=== PATIENT | male | born 2000 | race Caucasian/White ===

== ENCOUNTER 2025-03-19 19:51 | Inpatient (IN) | payer SELFPAY ==
[~2025-03-19] VITALS: Ht 162.6 cm; Wt 75.7 kg
[2025-03-19 19:57] VITALS: O2SAT 98
[2025-03-19 20:23] LABS: BASOPHILS % 0.2 % (0.0-2.0); EOSINOPHILS % 0.1 % (0.0-5.0); HEMATOCRIT. 47.7 % (42.0-52.0); HEMOGLOBIN. 16.0 g/dL (14.0-18.0); LYMPHOCYTES % 11.2 % (20.0-50.0); MEAN PLATELET VOLUME 9.4 fl (7.4-10.4); MONOCYTES % 4.5 % (2.0-8.0); NEUTROPHILS % 84.0 % (40.0-76.0); PLATELET 250 x1000/uL (130-400); RED BLOOD CELL COUNT 5.70 mill/uL (4.7-6.1); RED CELL DISTRIBUTION WIDTH 13.2 % (11.6-14.6)
[2025-03-19 20:39] LABS: CLARITY URINE TURBID (CLEAR); COLOR URINE YELLOW (YELLOW); GLUCOSE URINE NEGATIVE (NEGATIVE); KETONES URINE NEGATIVE (NEGATIVE); LEUKOCYTE ESTERASE URINE NEGATIVE (NEGATIVE); NITRITE URINE NEGATIVE (NEGATIVE); OCCULT BLOOD URINE NEGATIVE (NEGATIVE); PH URINE 7.0 (4.5-8.0); PROTEIN URINE NEGATIVE (NEGATIVE); SPECIFIC GRAVITY URINE 1.022 (1.005-1.030); UROBILINOGEN URINE 1.0 E.U./dL (0.2-1.0)
[2025-03-19 20:40] LABS: CREATININE 0.8 mg/dL (0.6-1.3); UREA NITROGEN BLOOD 8 mg/dL (9-23)
[2025-03-19 20:58] LABS: ASPARTATE AMINOTRANSFERASE 24 IU/L (<34); BILIRUBIN DIRECT 0.3 mg/dL (<=3.0); BILIRUBIN TOTAL 1.1 mg/dL (0.1-1.0); PROTEIN TOTAL 7.1 g/dL (6.0-8.3)
[2025-03-19 21:03] LABS: BACTERIA URINE 4+
[2025-03-19 21:04] LABS: AMORPHOUS SEDIMENT URINE 1+ /lpf; RBC URINE 0-2 /hpf (0-2); SQUAMOUS EPITHELIAL CELL URINE FEW /lpf (RARE/1+); WBC URINE 0-2 /hpf (0-2)
[2025-03-19] MEDS: SODIUM CHLORIDE 0.9% 1,000 ML IV ONE (21:04)
[2025-03-19] MEDS: KETOROLAC 30MG/ML VIAL IV NR (21:04)
[2025-03-19] MEDS: ONDANSETRON HCL 4MG/2ML INJ IV NR (21:04)
[2025-03-19] MEDS: FAMOTIDINE 20MG/2ML VIAL IV NR (21:04)
[2025-03-19] MEDS: SODIUM CHLORIDE 0.9% (SEPSIS BOLUS) IV ONE (22:22)
[2025-03-19] MEDS: MORPHINE SULFATE 4 MG/ML INJ (FOR IV/IM USE) IV NR (22:25)
[2025-03-19] MEDS: CEFOXITIN SODIUM 2 G in DEXT 5% WATER 100 ML IV NR (22:26)
[2025-03-19] MEDS: IOHEXOL-300 100 ML BOTTLE ONE (22:55)
[2025-03-20 00:30] VITALS: BP 110/64; PULSE 82; RESP 19; TEMP 36.6404
[2025-03-20] MEDS: SODIUM CHLORIDE 0.9% 1,000 ML IV SCH (01:09)
[2025-03-20] MEDS: METRONIDAZOLE 500 MG PREMIX 100 ML IV SCH (02:41)
[2025-03-20] MEDS: CEFTRIAXONE 2GM/50ML 50 ML IV SCH (05:00)
[2025-03-20 06:53] LABS: *AMPHETAMINES SCREEN URINE NEGATIVE (NEGATIVE)
[2025-03-20 06:55] LABS: *BARBITURATES SCREEN URINE NEGATIVE (NEGATIVE); *BENZODIAZEPINES SCREEN URINE NEGATIVE (NEGATIVE); *COCAINE SCREEN URINE NEGATIVE (NEGATIVE); CANNABINOID URINE SCREEN NEGATIVE (NEGATIVE); ECSTASY MDMA SCREEN URINE NEGATIVE (NEGATIVE); METHADONE URINE SCREEN NEGATIVE (NEGATIVE); OPIATES URINE SCREEN PRESUMPTIVE POSITIVE (NEGATIVE); PHENCYCLIDINE URINE SCREEN NEGATIVE (NEGATIVE)
[2025-03-20] MEDS ORDERED: BUPIVACAINE HCL/PF 0.5% (5MG/ML) 10ML ONE (07:07)
[2025-03-20] MEDS ORDERED: SKIN ADHESIVE 0.7 GM EA TOP ONE (07:07)
[2025-03-20] MEDS ORDERED: METOCLOPRAMIDE HCL 10MG/2ML VIAL ONE (07:41)
[2025-03-20] MEDS ORDERED: ONDANSETRON HCL 4MG/2ML INJ ONE (07:41)
[2025-03-20] MEDS ORDERED: ROCURONIUM BROMIDE 10MG/ML VIAL 5ML IV ONE (07:41)
[2025-03-20] MEDS ORDERED: FENTANYL CITRATE/PF 50MCG/ML 2ML VIAL ONE (07:42)
[2025-03-20] MEDS ORDERED: MIDAZOLAM HCL 2 MG/2 ML VIAL ONE (07:42)
[2025-03-20] MEDS ORDERED: PROPOFOL 200MG/20ML VIAL IV ONE ×2 (07:42→08:40)
[2025-03-20] MEDS ORDERED: ONDANSETRON HCL 4MG/2ML INJ IV PRN (08:15)
[2025-03-20] MEDS ORDERED: HYDROCODONE/ACETAMINOPHEN 5/325MG TABLET PO PRN (08:15)
[2025-03-20] MEDS ORDERED: MORPHINE SULFATE 4 MG/ML INJ (FOR IV/IM USE) IV PRN (08:15)
[2025-03-20] MEDS ORDERED: FAMOTIDINE 20MG/2ML VIAL IV ONE (08:28)
[2025-03-20] MEDS: PANTOPRAZOLE SODIUM 40 MG/VIAL IV SCH (08:41)
[2025-03-20] MEDS ORDERED: ACETAMINOPHEN 1000MG/100ML 100 ML IV PRN (09:30)
[2025-03-20] MEDS ORDERED: ACETAMINOPHEN 1,000MG/100ML PREMIX IV PRN (09:30)
[2025-03-20] MEDS ORDERED: HYDRALAZINE 20MG/ML VIAL IV PRN ×2 (09:30)
[2025-03-20] MEDS ORDERED: LABETALOL 5MG/ML 4ML INJ IV PRN (09:30)
[2025-03-20] MEDS ORDERED: HYDROMORPHONE HCL/PF 1MG/ML INJ IV PRN (09:30)
[2025-03-20] MEDS: ONDANSETRON HCL 4MG/2ML INJ IV PRN ×2 (09:41→09:45)
[2025-03-20] MEDS: FAMOTIDINE 20MG/2ML VIAL IV PRN (09:45)
[2025-03-20] MEDS: MEPERIDINE HCL/PF 25MG/ML CPJ IV PRN (09:47)
[2025-03-20] MEDS ORDERED: NALOXONE HCL 0.4MG/ML VIAL IV PRN (11:15)
[2025-03-20 12:00] VITALS: BP 134/80; PULSE 108; RESP 17; TEMP 36.7; O2SAT 100
[2025-03-20] MEDS: DEXT 5%/0.45% NACL KCL 20MEQ/L 1,000 ML IV SCH (13:13)
[2025-03-20 16:00] VITALS: BP 113/62; PULSE 114; RESP 18; TEMP 38; O2SAT 100
[2025-03-20] MEDS: ACETAMINOPHEN 325MG TABLET PO PRN (18:20)
[2025-03-20 20:00] VITALS: BP 122/69; PULSE 121; RESP 18; TEMP 36.8; O2SAT 99
[2025-03-21] VITALS: BP 123/63; PULSE 112; RESP 19; TEMP 37.4; O2SAT 97
[2025-03-21] MEDS: KETOROLAC 15MG/ML VIAL IV PRN (00:24)
[2025-03-21 04:00] VITALS: BP 106/65; PULSE 97; RESP 21; TEMP 36.8; O2SAT 99
[2025-03-21 08:00] VITALS: BP 127/71; PULSE 112; RESP 20; TEMP 36.9; O2SAT 99
[2025-03-21 08:13] LABS: BASOPHILS % 0.4 % (0.0-2.0); EOSINOPHILS % 0.0 % (0.0-5.0); HEMATOCRIT. 44.3 % (42.0-52.0); HEMOGLOBIN. 14.8 g/dL (14.0-18.0); LYMPHOCYTES % 7.3 % (20.0-50.0); MEAN PLATELET VOLUME 9.5 fl (7.4-10.4); MONOCYTES % 7.2 % (2.0-8.0); NEUTROPHILS % 85.1 % (40.0-76.0); PLATELET 209 x1000/uL (130-400); RED BLOOD CELL COUNT 5.24 mill/uL (4.7-6.1); RED CELL DISTRIBUTION WIDTH 13.4 % (11.6-14.6)
[2025-03-21 08:21] LABS: CREATININE 0.9 mg/dL (0.6-1.3); TRIGLYCERIDE 100 mg/dL (0-150); UREA NITROGEN BLOOD 8 mg/dL (9-23)
[2025-03-21 08:22] LABS: LDL CHOLESTEROL 72 mg/dL (5-100)
[2025-03-21 08:23] LABS: T4 FREE 1.55 ng/dL (0.89-1.76)
[2025-03-21] MEDS: MORPHINE SULFATE 4 MG/ML INJ (FOR IV/IM USE) IV PRN (11:51)
[2025-03-21 12:00] VITALS: BP 110/63; PULSE 112; RESP 20; TEMP 37.2; O2SAT 99
[2025-03-21] MEDS: ACETAMINOPHEN 325MG TABLET PO PRN (15:48)
[2025-03-21 16:00] VITALS: BP 116/60; PULSE 118; RESP 21; TEMP 36.8; O2SAT 95
[2025-03-21 20:00] VITALS: BP 113/59; PULSE 104; RESP 18; TEMP 36.9; O2SAT 95
[2025-03-22] VITALS: BP 103/57; PULSE 113; RESP 18; TEMP 37.4; O2SAT 97
[2025-03-22 04:00] VITALS: BP 118/66; PULSE 115; RESP 18; TEMP 37.1; O2SAT 94
[2025-03-22 08:00] VITALS: BP 108/69; PULSE 103; RESP 19; TEMP 36.8; O2SAT 95
[2025-03-22 08:40] LABS: CREATININE 0.8 mg/dL (0.6-1.3); UREA NITROGEN BLOOD 13 mg/dL (9-23)
[2025-03-22 09:04] LABS: BASOPHILS % 0.1 % (0.0-2.0); EOSINOPHILS % 0.0 % (0.0-5.0); HEMATOCRIT. 41.4 % (42.0-52.0); HEMOGLOBIN. 14.0 g/dL (14.0-18.0); LYMPHOCYTES % 7.2 % (20.0-50.0); MEAN PLATELET VOLUME 9.2 fl (7.4-10.4); MONOCYTES % 5.5 % (2.0-8.0); NEUTROPHILS % 87.2 % (40.0-76.0); PLATELET 215 x1000/uL (130-400); RED BLOOD CELL COUNT 4.90 mill/uL (4.7-6.1); RED CELL DISTRIBUTION WIDTH 13.2 % (11.6-14.6)
[2025-03-22 12:00] VITALS: BP 113/63; PULSE 111; RESP 18; TEMP 36.8; O2SAT 96
[2025-03-22 16:00] VITALS: BP 124/68; PULSE 104; RESP 19; TEMP 37.3; O2SAT 96
[2025-03-22] MEDS: HYDROCODONE/ACETAMINOPHEN 5/325MG TABLET PO PRN (17:25)
[2025-03-22 20:00] VITALS: BP 123/64; PULSE 79; RESP 20; TEMP 36.6; O2SAT 97
[2025-03-23] VITALS: BP 134/71; PULSE 85; RESP 17; TEMP 36.5; O2SAT 100
[2025-03-23 04:00] VITALS: BP 119/60; PULSE 76; RESP 18; TEMP 36.7; O2SAT 99
[2025-03-23 08:00] VITALS: BP 109/68; PULSE 88; RESP 19; TEMP 36.5; O2SAT 97
[2025-03-23 12:00] VITALS: BP 123/72; PULSE 89; RESP 19; TEMP 36.3; O2SAT 97
[2025-03-23 16:00] VITALS: BP 118/60; PULSE 87; RESP 19; TEMP 36.3; O2SAT 98
[2025-03-23 20:00] VITALS: BP 120/62; PULSE 91; RESP 20; TEMP 35.7; O2SAT 97
[2025-03-24] VITALS: BP 117/59; PULSE 93; RESP 20; TEMP 36.2; O2SAT 100
[2025-03-24 04:00] VITALS: BP 114/62; PULSE 87; RESP 20; TEMP 36.7; O2SAT 98
[2025-03-24 08:00] VITALS: BP 125/68; PULSE 83; RESP 18; TEMP 36.4; O2SAT 99
[2025-03-24] MEDS: FAMOTIDINE 20MG/2ML VIAL IV SCH (10:37)
[2025-03-24 12:00] VITALS: BP 123/72; PULSE 86; RESP 18; TEMP 36.4; O2SAT 98
[2025-03-24 12:39] LABS: BASOPHILS % 0.6 % (0.0-2.0); EOSINOPHILS % 1.9 % (0.0-5.0); HEMATOCRIT. 41.6 % (42.0-52.0); HEMOGLOBIN. 14.0 g/dL (14.0-18.0); LYMPHOCYTES % 13.8 % (20.0-50.0); MEAN PLATELET VOLUME 7.9 fl (7.4-10.4); MONOCYTES % 9.8 % (2.0-8.0); NEUTROPHILS % 73.9 % (40.0-76.0); PLATELET 312 x1000/uL (130-400); RED BLOOD CELL COUNT 4.89 mill/uL (4.7-6.1); RED CELL DISTRIBUTION WIDTH 13.0 % (11.6-14.6)
[2025-03-24 12:55] LABS: CREATININE 0.6 mg/dL (0.6-1.3); UREA NITROGEN BLOOD 11 mg/dL (9-23)
[2025-03-24 16:00] VITALS: BP 122/68; PULSE 78; RESP 19; TEMP 37.3; O2SAT 98
[2025-03-24 20:00] VITALS: BP 121/62; PULSE 86; RESP 16; TEMP 35.6; O2SAT 98
[2025-03-25] VITALS: BP 110/69; PULSE 71; RESP 18; TEMP 35.6; O2SAT 100
[2025-03-25 04:00] VITALS: BP 114/64; PULSE 89; RESP 16; TEMP 36.2; O2SAT 97
[2025-03-25 05:25] LABS: BASOPHILS % 0.4 % (0.0-2.0); EOSINOPHILS % 2.2 % (0.0-5.0); HEMATOCRIT. 39.8 % (42.0-52.0); HEMOGLOBIN. 13.4 g/dL (14.0-18.0); LYMPHOCYTES % 13.9 % (20.0-50.0); MEAN PLATELET VOLUME 8.0 fl (7.4-10.4); MONOCYTES % 9.7 % (2.0-8.0); NEUTROPHILS % 73.8 % (40.0-76.0); PLATELET 316 x1000/uL (130-400); RED BLOOD CELL COUNT 4.72 mill/uL (4.7-6.1); RED CELL DISTRIBUTION WIDTH 13.4 % (11.6-14.6)
[2025-03-25 05:32] LABS: CREATININE 0.7 mg/dL (0.6-1.3)
[2025-03-25 05:33] LABS: UREA NITROGEN BLOOD 9 mg/dL (9-23)
[2025-03-25 05:35] LABS: PHOSPHORUS 3.7 mg/dL (2.5-4.9)
[2025-03-25 08:00] VITALS: BP 114/66; PULSE 84; RESP 20; TEMP 36.6; O2SAT 100
[2025-03-25 12:00] VITALS: BP 112/63; PULSE 77; RESP 20; TEMP 36.6; O2SAT 98
[2025-03-25 16:00] VITALS: BP 119/72; PULSE 71; RESP 18; TEMP 36.4; O2SAT 100
[2025-03-25 20:00] VITALS: BP 118/63; PULSE 97; RESP 18; TEMP 36.3; O2SAT 98
[2025-03-26] VITALS: BP 111/65; PULSE 71; RESP 18; TEMP 36.3; O2SAT 99
[2025-03-26 04:00] VITALS: BP 111/62; PULSE 71; RESP 18; TEMP 36.3; O2SAT 98
[2025-03-26 08:00] VITALS: BP 112/66; PULSE 72; RESP 19; TEMP 36.4; O2SAT 100
[2025-03-26] MEDS ORDERED: PANT40TA51 MT ×2 (10:41→13:34)
[2025-03-26] MEDS ORDERED: IBUP-2030 MT ×2 (10:41→13:34)
[2025-03-26 11:57] LABS: BASOPHILS % 0.2 % (0.0-2.0); EOSINOPHILS % 1.3 % (0.0-5.0); HEMATOCRIT. 40.8 % (42.0-52.0); HEMOGLOBIN. 13.7 g/dL (14.0-18.0); LYMPHOCYTES % 13.2 % (20.0-50.0); MEAN PLATELET VOLUME 7.9 fl (7.4-10.4); MONOCYTES % 7.4 % (2.0-8.0); NEUTROPHILS % 77.9 % (40.0-76.0); PLATELET 373 x1000/uL (130-400); RED BLOOD CELL COUNT 4.83 mill/uL (4.7-6.1); RED CELL DISTRIBUTION WIDTH 13.3 % (11.6-14.6)
[2025-03-26 12:00] VITALS: BP 118/70; PULSE 74; RESP 18; TEMP 36.6; O2SAT 97
[2025-03-26 12:12] LABS: CREATININE 0.6 mg/dL (0.6-1.3); UREA NITROGEN BLOOD 9 mg/dL (9-23)
== END 2025-03-26 13:22 | disposition home or self-care (01) | DRG 710 ==
LOC: ER 20:09 → EDBEDREQSVC 21:57 → 6EST 22:37 → EDBEDREQ 22:40 → ENRESERV 23:20
PROVIDERS: ADMIT Internal Medicine; ATTEND Internal Medicine
PROC: 0DTJ4ZZ Resection of Appendix, Percutaneous Endoscopic Approach (ICD-10-PCS; principal; 2025-03-20)
DX: A41.9 Sepsis, unspecified organism (principal); K35.32 Acute appendicitis with perforation, localized peritonitis, and gangrene, without abscess; K21.9 Gastro-esophageal reflux disease without esophagitis; K38.1 Appendicular concretions; F10.90 Alcohol use, unspecified, uncomplicated; Y90.8 Blood alcohol level of 240 mg/100 ml or more
CPT/HCPCS: 36415; 74177; 80048; 80061; 80076; 80305; 81003; 83036; 83605; 83735; 84100; 84439; 84443; 84481; 85025; 88304; 99291; A4606; J0665; J0694; J0696; J1308; J1885; J2175; J2250; J2270; J2405; J2470; J2704; J2765; J3010; J3490; J7030; J7060; Q9967